=== PATIENT | female | born 1970 | race Caucasian/White ===

== ENCOUNTER 2017-04-19 21:33 | Emergency (ER) | payer OTHER ==
[~2017-04-19 21:33] MED LIST: Iopamidol 370 76% 100 ML VIAL ONE
[2017-04-19] MEDS ORDERED: methylPREDNISolone Sod Succ/PF 125 MG/2 ML VIAL ONE (22:06)
--- NOTE | 2017-04-19 22:20 | RAD ---
CHEST TWO VIEWS: History: Dyspnea. Comparison: None. FINDINGS: Lungs are clear of pneumothorax or effusion. Cardiac silhouette and mediastinal contours are normal. IMPRESSION: No acute intrathoracic abnormality. POS: [facility]
[2017-04-19 22:27] LABS: Bilirubin Negative (Negative); Blood, Urine Trace (Negative); Clarity Clear (Clear); Glucose, Urine (Dipstick) Negative (Negative); Leukocyte Trace (Negative); Nitrite Negative (Negative); Protein, Urine (Dipstick) Negative (Neg-Trace); Urobilinogen 0.2 mg/dL (0.2-1.0)
[2017-04-19 22:28] LABS: CKMB 0.4 ng/mL (0-6.6)
[2017-04-19 22:30] LABS: Specific Gravity, Urine 1.024 (1.002-1.036)
[2017-04-19 22:32] LABS: Pregnancy Test - Urine (BHCG) Negative (Negative); Pregu Control Background? CLEAR/WHITE (CLR/WHITE); Pregu Control Bar Appear? YES (CONTROL BAR); Specific Gravity 1.024 (1.002-1.036)
[2017-04-19 22:36] LABS: ALT (SGPT) 14 U/L (8-55); AST (SGOT) 14 U/L (5-34); Albumin 3.8 g/dL (3.5-5.0); Alkaline Phosphatase 111 U/L (40-150); Anion Gap 13 mmol/L (10-20); BUN (Urea Nitrogen) 13 mg/dL (7.0-18.7); Bilirubin, Total 0.2 mg/dL (0.2-1.2); Calc. Creatinine Clearance 0 mL/min (70-130); Carbon Dioxide 21 mmol/L (22-29); Chloride 110 mmol/L (98-107); Estimated GFR-MDRD 68; Globulin 3.2 g/dL (2.4-3.5); Glucose 110 mg/dL (70-105); Potassium 3.7 mmol/L (3.5-5.1); Sodium 140 mmol/L (136-145)
[2017-04-19] MEDS ORDERED: Lorazepam 2 MG/ML VIAL ONE (22:37)
[2017-04-19 22:40] LABS: #Eosinphils 0.2 thou/uL (0.0-0.7); #Monocytes 0.5 thou/uL (0.11-0.59); %Basophils 0.5 % (0.0-1.0); %Eosinophils 2.1 % (0.0-10.0); %Monocytes 6.2 % (0.0-10.0); %Neutrophils 57.2 % (42.0-75.0); Hemoglobin 16.6 g/dL (12.0-16.0); Mean Corpuscular HGB CONC 31.1 g/dL (32.0-36.0); Mean Corpuscular Hemoglobin 31.7 pg (27.0-31.0); Mean Platelet Volume 6.3 fL (7.4-10.4); PLT Morphology Comment Appears Adequate; Platelet Count 303 thou/uL (130-400); RBC Distribution Width 12.9 % (11.5-14.5); RBC Morphology Normal; Red Blood Cell (RBC) Count 5.23 mill/uL (4.20-5.40); White Blood Cell (WBC) Count 8.7 thou/uL (4.8-10.8)
[2017-04-19 22:42] LABS: RBC/HPF 0-3 HPF (0-3)
[2017-04-19 22:43] LABS: Bacteria/HPF Rare-Few HPF (None Seen); WBC/HPF 0-3 HPF (0-3)
[2017-04-19] MEDS ORDERED: Sodium Chloride 0.9% 500 ML ONE (23:05)
--- NOTE | 2017-04-19 23:56 | CT ---
CTA CHEST WITH CONTRAST: History: Chest pain. Comparison: Chest radiograph, same day. FINDINGS: Exam is limited due to bolus timing and patient motion. Given this limitation, no proximal segmental pulmonary arterial defect. Pulmonary trunk are without aneurysmal dilatation. Heart size is normal. No pericardial effusion. No adenopathy. Old subcarinal calcified lymph nodes. Findings are mildly hypoinflated. Scattered calcified granulomas. Manubrium, visualized portions of the clavicles are intact. Upper abdomen is unremarkable. IMPRESSION: 1. No proximal segmental pulmonary arterial filling defect. 2. No evidence of pneumonia. No acute intrathoracic abnormality. POS: [facility]
[2017-04-20 01:28] LABS: CKMB 0.4 ng/mL (0-6.6); Troponin I Less than 0.010 ng/mL (< 0.028)
== END 2017-04-20 02:40 | disposition home or self-care (01) ==
LOC: NAV ERS 21:33
DX: J20.9 Acute bronchitis, unspecified (principal); R09.1 Pleurisy; E66.9 Obesity, unspecified; E78.5 Hyperlipidemia, unspecified; I10 Essential (primary) hypertension; F32.9 Major depressive disorder, single episode, unspecified; F17.210 Nicotine dependence, cigarettes, uncomplicated; Z79.899 Other long term (current) drug therapy
CPT/HCPCS: 71010; 71275; 80053; 81003; 81015; 81025; 82553; 84484; 85025; 85379; 93005; 94640; 94760; 96374; 96375; J2060; J2930; J7050; J7620

== ENCOUNTER 2025-05-17 11:24 | Outpatient (CLI) | payer OTHER | END 2025-05-17 11:25 | disposition home or self-care (01) | LOC: NAV RAD 11:24 | PROVIDERS: ATTEND Family Medicine | DX: R07.89 Other chest pain (principal) ==